=== PATIENT | female | born 1940 | race American Indian/Alaskan Native ===

== ENCOUNTER 2018-07-10 20:00 | Emergency (ER) | payer BC, MEDICARE, OTHER ==
[2018-07-10 20:03] VITALS: BP 147/90; PULSE 71; RESP 18; TEMP 97.5; O2SAT 99
[2018-07-10] MEDS ORDERED: Lidocaine Hydrochloride 1% 10 ML ONE (21:30)
--- NOTE | 2018-07-10 22:07 | ED PDOC ---
Lower Extremity Pain/Injury Time Seen by Provider: 07/10/18 20:15 Chief Complaint (Nursing): Lower Extremity Problem/Injury Chief Complaint (Provider): Lower Extremity Problem/Injury History Per: Patient History/Exam Limitations: no limitations Current Symptoms Are (Timing): Still Present Additional Complaint(s): 77 year old female with a history of diabetes and hypertension presents to the E D with right toe problem. Patient states she feels toe is swollen and her nail is the issue. She is requesting that the nail be taken off. 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 She denies any fever, sweats, weight loss or redness. 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 PMD: John Pulido Past Medical History Reviewed: Historical Data, Nursing Documentation, Vital Signs Vital Signs: Last Vital Signs Temp 97.5 F L 07/10/18 20:03 Pulse 71 07/10/18 20:03 Resp 18 07/10/18 20:03 BP 147/90 07/10/18 20:03 Pulse Ox 99 07/10/18 20:03 - Medical History PMH: Diabetes, HTN - Family History Family History: States: Unknown Family Hx - Home Medications Home Medications: Ambulatory Orders Medication Instructions Recorded Ibuprofen [Motrin Tab] 600 mg PO Q6 #30 tab 07/10/18 - Allergies Allergies/Adverse Reactions: Allergies Allergy/AdvReac Type Severity Reaction Status Date / Time No Known Allergies Allergy Verified 07/10/18 20:05 Review of Systems ROS Statement: Except As Marked, All Systems Reviewed And Found Negative Constitutional: Negative for: Fever, Sweats, Weight loss Musculoskeletal: Positive for: Other (right toe swelling, but no redness) Physical Exam - Reviewed Nursing Documentation Reviewed: Yes Vital Signs Reviewed: Yes - Physical Exam Appears: Positive for: Well Extremity: Positive for: Other (Toes: evidence of onychomycosis. Fifth toe on right foot has mild swelling, intact sensation, tenderness to palpation) - ECG O2 Sat by Pulse Oximetry: 99 (RA) Pulse Ox Interpretation: Normal Medical Decision Making Medical Decision Making: Time: 2026 Impression: diabetic toe issue. No ulcer, no skin breakdown seen, will appreciate podiatry consult and get x-ray. Time: 2249 Xray negative for bone breakdown Patient was seen and examined by podiatry resident Patient stable for outpatient followup Well appearing upon discharge. Scribe Attestation: Documented by Faustina Lorenzo, acting as a scribe for Jarek Alegria MD. Provider Scribe Attestation: All medical record entries made by the Scribe were at my direction and personally dictated by me. I have reviewed the chart and agree that the record accurately reflects my personal performance of the history, physical exam, medical decision making, and the department course for this patient. I have also personally directed, reviewed, and agree with the discharge instructions and disposition. Disposition - Clinical Impression Clinical Impression: Diabetic foot - Disposition Referrals: Danny Shafer DPM [Staff Provider] - Disposition: Routine/Home Disposition Time: 22:50 Condition: GOOD Prescriptions: Ibuprofen [Motrin Tab] 600 mg PO Q6 #30 tab Instructions: Foot Care for Diabetics Forms: [facility] (Danish)
--- NOTE | 2018-07-10 22:38 | CP.PCM.CON ---
History of Present Illness - History of Present Illness History of Present Illness: Podiatry consult note for attending Dr. Danny Shafer: 77 year old female with past medical history of DM, Diabtic neuropathy, PVD and hypertension presents to the ED with right little toe pain. Patient accompanied by her aid at the bedside as she has weak vision. Patient states she feels toe is swollen and her nail ingrowing causing her pain. She states that she has this problem since long time and she used to go to Dr. Shafer to take care of it. She states that she had infection in this toe and it was treated by Dr. Shafer. She states that it started to get painful again since a month. She states that Today the pain is maximum and she couldn't wait for the appointment with Dr. Shafer. Patient denies any trauma to her feet. She denies any recent fever, sweats, weight loss, nausea, vomiting, cough or chills. She states that she has episodes of tingling, numbness and burning sensation in her feet. PMH: DM, Diabtic neuropathy, PVD and hypertension PSH: B/L LE stents, Knee surgery. Allergies: NKDA Social Hx: Denies smoking, EtOH use or Illicit drug use. Review of Systems - Review of Systems Review of Systems: As Per HPI - Constitutional Constitutional: As Per HPI Past Patient History - Past Social History Smoking Status: Never Smoked - CARDIAC Hx Hypertension: Yes - ENDOCRINE/METABOLIC Hx Diabetes Mellitus Type 2: Yes - PSYCHIATRIC Hx Substance Use: No Meds Home Medications: Home Medication List Medication Instructions Recorded Confirmed Type Ibuprofen [Motrin Tab] 600 mg PO Q6 #30 tab 07/10/18 Rx Allergies/Adverse Reactions: Allergies Allergy/AdvReac Type Severity Reaction Status Date / Time No Known Allergies Allergy Verified 07/10/18 20:05 Physical Exam - Constitutional Appears: Non-toxic, No Acute Distress - Head Exam Head Exam: ATRAUMATIC - Extremities Exam Additional comments: B/L lower extremity focused exam: Vascular: DP/PT are non palpable b/l, Cap refill < 4 seconds to all digits, Temp gradient warm to cool from proximal to distal b/l, Mild non pitting edema appreciated to the right 5th toe. Neuro: Gross sensation intact, protective sensation diminished b/l. Derm: Toe nails dystrophic, discolored and thickened X 10. Hyperkeratotic lesion noted on the lateral aspect of the right 5th toe. Right 5th toe is ingrowing to the lateral nail fold. MSK: Muscle power 5/5 to all groups b/l, Pain noted on palpating the right 5th toe. - Neurological Exam Neurological exam: Alert, Oriented x3 Results - Vital Signs Recent Vital Signs: Last Vital Signs Temp 97.5 F L 07/10/18 20:03 Pulse 71 07/10/18 20:03 Resp 18 07/10/18 20:03 BP 147/90 07/10/18 20:03 Pulse Ox 99 07/10/18 22:07 Assessment & Plan - Assessment and Plan (Free Text) Assessment: 77 year old female with past medical history of DM, Diabtic neuropathy, PVD and hypertension presents to the ED with right 5th toe pain. Plan: Patient seen and evaluated at the ED. Discussed in detail with Dr. Shafer Charts and vitals reviewed; Afebrile Right foot 3 views X-ray; Diffuse osteoporosis, Diffuse arthritic changes. Bone spur noted to the right 5th toe distal phalanx. Right little toe numbed using 3 cc lidocaine 1% plain (Lot no; [id number], Exp; 03/15) After acheiving local anesthesia to the right little toe debridement of the hyperkeratotic lesion using sterile #15 blade. Patient tolerated the toe debridement well with no complications. Thank you for the consult. Patient to follow up with Dr Shafer (In case she couldn't find near appointment She could follow up with Dr Farley or Dr Knox) up on discharge from the ED. - Date & Time Date: 07/10/18 Time: 22:51
--- NOTE | 2018-07-11 09:23 | RAD ---
Date of service: 07/10/2018 PROCEDURE: Right Foot Radiographs. HISTORY: DM toe swelling COMPARISON: None. FINDINGS: BONES: No acute fracture or destructive bony lesion identified. Diffuse extensive osteopenia suggests osteoporosis. JOINTS: Multifocal degenerative joint changes are [id number] severity throughout the foot but seen worst at the interphalangeal joint great toe with there is essentially no residual joint space remaining. Cortical sclerosis is prominent at the 1st metatarsophalangeal joint as well as the calcaneal navicular joint. No subluxation or dislocation appreciable. Small plantar calcaneal spur noted. SOFT TISSUES: Extensive vascular calcifications are scattered throughout the foot and ankle soft tissues. Trace emphysema soft tissue changes are questioned and can cavity at the lateral right forefoot soft tissues suspicious for an ulcer lateral to the distal 5th metacarpal bone level. OTHER FINDINGS: None. IMPRESSION: No fracture, subluxation or dislocation right foot. 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 An ulcer is suspected at the lateral forefoot soft tissues lateral to the distal segment left 5th metatarsal bone there is a small can cavity and question emphysema soft tissue change. No periosteal reaction to suggest overt sign of osteomyelitis. Clinically correlate nevertheless.
== END 2018-07-10 22:50 | disposition home or self-care (01) ==
LOC: H.ER 20:00
DX: E11.40 Type 2 diabetes mellitus with diabetic neuropathy, unspecified (principal); I10 Essential (primary) hypertension; M19.071 Primary osteoarthritis, right ankle and foot; M77.31 Calcaneal spur, right foot